=== PATIENT | male | born 1995 | race Caucasian/White ===

== ENCOUNTER 2018-10-12 13:27 | Outpatient (CLI) | payer OTHER ==
--- NOTE | 2018-10-12 14:33 | ULT ---
TESTICULAR SONOGRAM: History: Pain and swelling on the right side. FINDINGS: Right testicle is 4.3 cm and the left 3.8 cm. Each has a normal sonographic appearance with good colo r and spectral doppler flow. There are tiny cysts of the left epididymis. IMPRESSION: No evidence of torsion or mass. POS: [facility]
== END 2018-10-12 13:28 | disposition home or self-care (01) ==
LOC: SCSULT 13:27
PROVIDERS: ATTEND Urology
DX: N50.9 Disorder of male genital organs, unspecified (principal)
CPT/HCPCS: 76870; 93976

== ENCOUNTER 2018-10-31 19:47 | Emergency (ER) | payer OTHER, SELFPAY ==
--- NOTE | 2018-10-31 20:37 | CT ---
CT CERVICAL SPINE WITHOUT CONTRAST: 10/31/2018 HISTORY: Injury. Trauma. Pain. COMPARISON: None. TECHNIQUE: Axial CT imaging at 2.5 mm intervals, from the skull base through the lung apices, without contrast. Coronal and sagittal reformatted imaging obtained. FINDINGS: The imaged paranasal sinuses and mastoid air cells appear well aerated. The C1 ring is intact. The occipital condyles, the dens, the C1-C2 articulation, the atlantoaxial in terspace, the craniocervical junction, and the cervicothoracic junction appear intact. Cervical vertebral body height and alignment appear normal with no prevertebral soft tissue swelling, displaced fracture, or evidence of dislocation. IMPRESSION: No acute findings. Results called to Dr. Biggs at 8:25 p.m. on 10/31/2018. CODE CR POS: [facility]
--- NOTE | 2018-10-31 20:38 | CT ---
CT HEAD WITHOUT CONTRAST: 10/31/2018 HISTORY: Injury. Trauma. Fall. Pain. COMPARISON: 05/07/2014 TECHNIQUE: Axial CT imaging at 5 mm intervals, from the vertex through the skull base, without contrast. FINDINGS: Mild polypoid mucosal thickening of the alveolar recess, right maxillary sinus. No displaced calvari al fracture. No intracranial hemorrhage, midline shift, mass effect, or ventricular enlargement. IMPRESSION: No acute fracture or intracranial hemorrhage. Results called to Dr. Biggs at 8:25 p.m. on 10/31/2018 . CODE CR POS: [facility]
== END 2018-10-31 20:55 | disposition home or self-care (01) ==
LOC: ERS 19:47
DX: S06.0X9A Concussion with loss of consciousness of unspecified duration, initial encounter (principal); S16.1XXA Strain of muscle, fascia and tendon at neck level, initial encounter; Z86.73 Personal history of transient ischemic attack (TIA), and cerebral infarction without residual deficits; W17.89XA Other fall from one level to another, initial encounter; Y93.39 Activity, other involving climbing, rappelling and jumping off
CPT/HCPCS: 70450; 72125